=== PATIENT | female | born 1970 | race Caucasian/White ===

== ENCOUNTER 2021-08-17 19:23 | Emergency (ER) | payer OTHER ==
[2021-08-17 21:10] LABS: BASOPHIL 0.2 % (0-2); BILIRUBIN NEGATIVE (NEGATIVE); BLOOD NEGATIVE Ery/uL (NEGATIVE); CLARITY CLEAR (CLEAR); COLOR YELLOW (YELLOW); EOSINOPHIL 0.8 % (0-5); GLUCOSE (U) NORMAL (NORMAL); HCT 44.8 % (37.0-47.0); LEUKOCYTES TRACE Leu/uL (NEGATIVE); LYMPHOCYTE 46.1 % (15-48); MCH 27.4 pg (25.0-31.0); MCHC 31.3 g/dL (32.0-36.0); MCV 87.7 fL (78.0-100.0); MONOCYTE 8.2 % (0-12); NEUTROPHIL 44.4 % (41-80); NITRITE NEGATIVE (NEGATIVE); NRBC 0; PLT 288 K/uL (150-400); PROTEIN NEGATIVE (NEGATIVE); RBC 5.11 M/uL (4.20-5.40); RDW 13.1 % (11.5-14.0); UROBILINOGEN 0.2 mg/dL (0.2-1.0); WBC 6.6 K/uL (4.0-10.5)
[2021-08-17 21:25] LABS: CREATININE 0.58 mg/dL (0.51-0.95); POTASSIUM 3.1 mmol/L (3.5-5.1)
[2021-08-17 21:34] LABS: URINARY WBC RARE
[2021-08-17 21:36] LABS: MUCOUS TRACE
[2021-08-17] MEDS ORDERED: ZOFRAN4 M1 PO (23:27)
[2021-08-17] MEDS ORDERED: VENTOLIN HFA IN18 GM INH (23:27)
[2021-08-17] MEDS ORDERED: KLOR-CON M20 T20 MEQ PO (23:29)
[2021-08-17] MEDS ORDERED: TESSALON PERLE100 MG PO (23:29)
== END 2021-08-18 01:10 | disposition home or self-care (01) ==
LOC: FER 19:23
PROVIDERS: Nurse Practitioner Family
DX: U07.1 COVID-19 (principal); E87.6 Hypokalemia; Z23 Encounter for immunization; Z88.8 Allergy status to other drugs, medicaments and biological substances; Z91.048 Other nonmedicinal substance allergy status
CPT/HCPCS: 36415; 71275; 80048; 81001; 85025; 94640; 94664; J7030; M0243; Q0244; Q9967